=== PATIENT | female | born 1955 | race Caucasian/White ===

== ENCOUNTER 2023-07-12 14:29 | Emergency (ER) | payer MEDICARE, OTHER, SELFPAY ==
[2023-07-12 14:31] VITALS: BP 152/92
[2023-07-12 14:39] VITALS: BMI 28.8
--- NOTE | 2023-07-12 15:10 | ED.GENMED ---
History of Present Illness
General
Chief Complaint: Chest Pain
Source: patient
Exam Limitations: none
Time Seen by Provider: 07/12/23 15:08
Nursing documentation reviewed up to this point in time: agreed with
Travel History
Have you had any contact with someone who has COVID-19?: No
Do you have any symptoms of coronavirus? Fever > 100 degrees, chills, cough, shortness of breath, sore throat, loss of taste or smell, muscle aches, or headache?: No
History of Present Illness
History of Present Illness:
68-year-old female with history of HTN, gastric carcinoid, IDDM, states for past two hours she's had waxing and waning 'heaviness, pressure' mid chest, non radiating, no n/v/d/c, no dizziness, lightheadedness, denies SOB.
Past History
Past History
ED Past Medical History: HTN and IDDM
ED Past Surgical History: Appendectomy, Cholecystectomy, and Gynecological (L oophorectomy)
Patient has exhibited threatening behavior?: No
PSI?: No
Social History
Tobacco: Non-smoker
Alcohol: None
Personal:
Living: with family
Review of Systems
Review of Systems
Allergies reviewed?: Yes
All Other Systems: ROS reviewed and negative except as documented in HPI and ROS
Constitutional: Denies fever or fatigue
Respiratory: Denies trouble breathing
Cardiac: Reports chest pain; Denies diaphoresis, palpitations or syncope
ABD/GI: Denies abdominal pain, nausea or diarrhea
: Denies dysuria, frequency or difficulty voiding
Musculoskeletal: Reports no symptoms
Skin: Reports no symptoms
Neurological: Reports no symptoms
Phy Exam
Physical Exam
Physical Exam:
GENERAL: No acute distress. A&Ox3.
CONSTITUTIONAL: Afebrile.
EYES: Clear, conjunctivae normal
ENMT: moist mucus membranes, Pharynx nl
RESPIRATORY: Regular respirations, nonlabored, lungs clear.
CARDIOVASCULAR: Regular rate and rhythm, no murmurs, no rubs.
GI: Soft, nontender, normal BS
MUSCULOSKELETAL: Moves with ease. Well perfused.
SKIN: Warm, dry, pink
PSYCH: Normal mood and affect. Well kept, interactive and appropriate
NEUROLOGIC: Awake, alert and oriented. No focal neurological deficits
Scores
Heart Score for Chest Pain Patients
STEMI patient?: Not applicable
Course
Orders/Labs/Results
Orders:
Orders
07/12/23 14:30
EKG [Electrocardiogram (*1)] Urgent
Reason for Study: Chest Pain
EKG- Treatment ONCE
07/12/23 15:21
Complete Blood Count/With Diff Urgent
Comprehensive Metabolic Panel Urgent
07/12/23 17:13
Troponin I Urgent
07/12/23 17:48
CR Chest - 2 Views Urgent
Comment:
Reason For Exam: chest pain
Abnormal Lab Results
07/12/23
15:21
Absolute Monos (auto) 1.1 H 10^3/uL
(0.1-0.6)
Monocytes % 13.7 H %
(1.7-9.3)
Potassium 3.1 L mmol/L
(3.5-5.1)
Creatinine 0.5 L mg/dL
(0.6-1.0)
07/12/23 15:21
07/12/23 15:21
Vital Signs
Initial and Last Documented VS:
Initial Vital Signs
Temp Pulse Resp BP Pulse Ox
98.2 F 103 18 152/92 98
07/12/23 14:31 07/12/23 14:31 07/12/23 14:31 07/12/23 14:31 07/12/23 14:31
Last Documented Vital Signs
Temp Pulse Resp BP Pulse Ox
98.2 F 96 16 134/72 98
07/12/23 14:31 07/12/23 18:22 07/12/23 18:22 07/12/23 18:22 07/12/23 18:22
MDM/Problems Addressed
MDM/Problems Addressed:
68-year-old female with history of HTN, gastric carcinoid, IDDM, states for past two hours she's had waxing and waning 'heaviness, pressure' mid chest, non radiating, no n/v/d/c, no dizziness, lightheadedness, denies SOB.
EKG NSR
4:45
CBC normal
CMP normal
Troponin normal
6:00 p.m.
CXR NAD
Pt reassured
Has seen Dr. Nguyen in the past 2-3 yrs ago.
Referred to [facility] cardiology hotline
*EKG
EKG Intrepretation Date: 07/12/23
Interpretation: normal
Rate: normal
Rhythm: sinus
[place]: normal axis
Interval: normal interval
QRS Pattern: normal QRS
Ischemia: no ischemia
*Critical Care Note
Total Time (30-74mins, 75-104mins- exclusive of procedures): Not Applicable
ED Attending Note
-
Portions of this chart may have been created with voice recognition software.� Occasional wrong word or��sound alike� substitutions may have occurred due to the inherent limitations of voice recognition software.
Discharge Plan
Departure
Patient Disposition: Home (Routine Discharge)
Date of Disposition: 07/12/23
Time of Disposition: 18:16
Patient with high blood pressure during this ER visit?: No
Condition: Good
Discharge Problem:
Atypical chest pain
Instructions: Chest Pain That Is Not Caused by the Heart (DC), Acid Reflux and GERD in Adults (DC), Chest Pain CBC Follow Up
Prescriptions:
No Action
ropinirole 1 mg Tablet
2 mg PO HS
insulin glargine [Lantus U-100 Insulin] 100 unit/mL Solution
32 unit SC HS
simvastatin [Zocor] 10 mg Tablet
10 mg PO HS
Theragen Tablet
1 tab PO HS
aspirin 81 mg Tablet,Delayed Release (Dr/Ec)
81 mg PO HS
pantoprazole [Protonix] 40 mg Tablet,Delayed Release (Dr/Ec)
40 mg PO DAILY
ibuprofen [Advil] 200 mg Tablet
200 mg PO Q6HPRN PRN (Reason: mild pain)
vitamin B complex [B Complete] Tablet
1 tab PO HS
glipizide 5 mg Tablet
5 mg PO BID
amlodipine-benazepril 5-40 mg Capsule
1 cap PO DAILY
omega 3-pkh-pzs-fish oil [Fish Oil] 1,000 mg (120 mg-180 mg) Capsule
1 cap PO HS
Synjardy 12.5-1,000 mg Tablet
1 tab PO BID
Mounjaro 15 mg/0.5 mL Pen Injector
15 mg SC TH
Referrals:
Katie Rubio PA-C [Family Provider] -
Sara Nguyen MD [Active] - Next open appointment
Activity Restrictions/Additional Instructions:
As we discussed, your workup here today shows nothing worrisome.
Someone from your Cardiology group will contact you in the next 1-2 days to make appointment for a more complete cardiac workup.
Return here at any time if chest pain worsens or you feel worse in any way
Interventions
Interventions:
*Risk Screen - Suicide Last Done: 07/12/23 14:40
*General Assessment Last Done: 07/12/23 14:39
*Neglect/Abuse Screening Last Done: 07/12/23 14:40
ED- Fall Risk Assessment Last Done: 07/12/23 14:40
*ED COVID-19 Vaccine History Last Done: 07/12/23 14:39
*Nursing Disposition Last Done: 07/12/23 18:22
ED- Cardiac Assessment Last Done: 07/12/23 14:39
Discharge Date and Time
Discharge Date/Time: 07/12/23 18:28
Print Language: MONGOLIAN
[2023-07-12 15:36] LABS: % Basophils 1.1 % (0-2); % Eosinophils 2.4 % (0-6); % Immature Granulocytes 0.5 % (0-0.5); % Lymphocytes 25.9 % (20.5-51.1); % Monocytes 13.7 % (1.7-9.3); % Neutrophils 56.4 % (42.2-75.2); Absolute Basophils 0.1 10^3/uL (0-0.2); Absolute Eosinophils 0.2 10^3/uL (0-0.7); Absolute Monocytes 1.1 10^3/uL (0.1-0.6); Absolute Neutrophils 4.4 10^3/uL (1.4-6.5); Hematocrit 39.6 % (37.0-47.0); Hemoglobin 14.1 g/dL (12.0-16.0); Mean Corp Hgb Conc. 35.6 g/dL (33.0-37.0); Mean Corpuscular Hgb 30.1 pg (27.0-31.0); Mean Corpuscular Volume 84.4 fL (81.0-99.0); Mean Platelet Volume 8.9 fL (7.4-10.4); Nucleated Red Blood Cells % 0 %; Platelet Count 256 10^3/uL (130-400); Red Blood Cell Count 4.69 10^6/uL (4.20-5.40); Red Cell Dist. Width 13.3 % (11.5-14.5); White Blood Cell Count 7.9 10^3/uL (4.8-10.8)
[2023-07-12 15:52] LABS: ALT (SGPT) 24 U/L (0-35); AST (SGOT) 27 U/L (14-36); Albumin 4.1 g/dl (3.5-5.0); Alkaline Phosphatase 71 U/L (38-126); Blood Urea Nitrogen 13 mg/dl (7-17); Calcium 9.5 mg/dl (8.4-10.2); Carbon Dioxide 25 mmol/L (22-30); Chloride 102 mmol/L (98-107); Estimated Creatinine Clearance 82 ml/min; Glucose 84 mg/dl (70-99); Potassium 3.1 mmol/L (3.5-5.1); Sodium 138 mmol/L (135-145); Total Bilirubin 1.1 mg/dl (0.2-1.3); Total Protein 6.3 g/dl (6.3-8.2); eGFR > 60.00
[2023-07-12 16:27] VITALS: BP 144/77
[2023-07-12 17:47] LABS: Troponin I < 0.012 ng/ml
[2023-07-12 18:22] VITALS: BP 134/72
== END 2023-07-12 18:28 | disposition home or self-care (01) ==
LOC: EMR 14:29
PROVIDERS: Registered Nurse; EMERGENCY PHYSICIAN Emergency Medicine; FAMILY PHYSICIAN Physician Assistant
DX: R07.89 Other chest pain (principal); I10 Essential (primary) hypertension; E11.9 Type 2 diabetes mellitus without complications; Z90.49 Acquired absence of other specified parts of digestive tract
CPT/HCPCS: 99283; 71046; 80053; 84484; 85025; 93005

== ENCOUNTER → 2023-08-02 08:01 | Outpatient (REF) | payer MEDICARE, OTHER, SELFPAY | LOC: HWRCS 08:01 | PROVIDERS: ATTENDING PHYSICIAN Internal Medicine Cardiovascular Disease; FAMILY PHYSICIAN Physician Assistant | DX: R94.31 Abnormal electrocardiogram [ECG] [EKG] (principal); R07.89 Other chest pain; E78.00 Pure hypercholesterolemia, unspecified; I10 Essential (primary) hypertension; Z85.020 Personal history of malignant carcinoid tumor of stomach | CPT/HCPCS: 93306 ==

== ENCOUNTER → 2023-08-10 07:44 | Outpatient (REF) | payer MEDICARE, OTHER, SELFPAY | LOC: DHCBC/DCA 07:44 | PROVIDERS: ATTENDING PHYSICIAN Internal Medicine Cardiovascular Disease; FAMILY PHYSICIAN Physician Assistant | DX: R94.31 Abnormal electrocardiogram [ECG] [EKG] (principal); R07.89 Other chest pain; E11.9 Type 2 diabetes mellitus without complications; E78.00 Pure hypercholesterolemia, unspecified; I10 Essential (primary) hypertension; Z85.020 Personal history of malignant carcinoid tumor of stomach | CPT/HCPCS: 78452; 93017; A9500 ==

== ENCOUNTER → 2023-09-15 06:28 | Day surgery (SDC) | payer MEDICARE, OTHER, SELFPAY ==
[2023-09-15 08:12] LABS: Glucose - Point of Care 137 mg/dl (70-99)
== END ==
LOC: GI 06:28
PROVIDERS: ATTENDING PHYSICIAN Internal Medicine Gastroenterology
DX: Z12.11 Encounter for screening for malignant neoplasm of colon (principal); K64.8 Other hemorrhoids; K31.7 Polyp of stomach and duodenum; K31.89 Other diseases of stomach and duodenum; Z86.010 Personal history of colon polyps; Z85.028 Personal history of other malignant neoplasm of stomach; Z98.890 Other specified postprocedural states
CPT/HCPCS: 43239; G0105; 88305; 82962

== ENCOUNTER → 2024-02-14 10:12 | Outpatient (REF) | payer MEDICARE, OTHER, SELFPAY | LOC: RCS 10:12 | PROVIDERS: ATTENDING PHYSICIAN Internal Medicine Cardiovascular Disease; FAMILY PHYSICIAN Physician Assistant | DX: C79.89 Secondary malignant neoplasm of other specified sites (principal) | CPT/HCPCS: 93306; 93356 ==